=== PATIENT | female | born 1960 | race Caucasian/White ===

== ENCOUNTER 2019-04-26 16:31 | Emergency (ER) | payer OTHER ==
[~2019-04-26] VITALS: Ht 157.5 cm; Wt 72.5 kg
[~2019-04-26 16:31] MED LIST: ALBU18HF IH; TRAM50TA2 PO
[2019-04-26 17:37] VITALS: Ht 157.5 cm; Wt 72.5 kg
[2019-04-26] MEDS ORDERED: KETOROLAC 30 MG INJ IM STA (18:23)
[2019-04-26 19:07] VITALS: BP 134/82; PULSE 72; RESP 18
== END 2019-04-26 19:08 | disposition home or self-care (01) ==
LOC: FTE 16:31
DX: S13.9XXA Sprain of joints and ligaments of unspecified parts of neck, initial encounter (principal); J45.909 Unspecified asthma, uncomplicated; S23.3XXA Sprain of ligaments of thoracic spine, initial encounter; V89.2XXA Person injured in unspecified motor-vehicle accident, traffic, initial encounter
CPT/HCPCS: 71045; 72040; 72100; 96372; J1885; Z7502